=== PATIENT | male | born 1960 | race Two or more races ===

== ENCOUNTER 2019-10-07 16:50 | Emergency (ER) | payer OTHER ==
[2019-10-07 17:22] VITALS: BP 149/96
--- NOTE | 2019-10-07 17:54 | ER Document Report ---
ED Medical Screen (RME) - General Chief Complaint: Thumb Injury Stated Complaint: RIGHT THUMB INJURY Time Seen by Provider: 10/07/19 17:45 Mode of Arrival: Ambulatory Information source: Patient Notes: HPI; 59-year-old male past medical history significant for hypertension presents the emergency room complaining of nasal bone pain, right thumb pain. Patient states he tripped and fell while playing tennis 2 days ago hitting his face on the court as well as his right thumb. He did sustain a laceration to the medial aspect of the right thumb. He denies any loss of consciousness. States his tetanus is up-to-date. Taking ibuprofen with some relief. Denies nausea, vomiting. PE: Alert and oriented x3. Tenderness to the bridge of the nose. Abrasions noted to the upper lip and chin. Right thumb with a healing laceration to the right lateral aspect of the thumbnail. Obvious deformity of the thumb. Positive right radial pulse. Capillary refill less than 3 seconds. I have greeted and performed a rapid initial assessment of this patient. A comprehensive ED assessment and evaluation of the patient, analysis of test results and completion of the medical decision making process will be conducted by additional ED providers. I have specifically instructed the patient or family members with the patient to immediately return to any nursing staff should anything change in the patient's condition or with their chief complaint. - Related Data Allergies/Adverse Reactions: No Known Allergies Allergy (Unverified 10/07/19 17:49) Home Medications: BP meds but pt cannot recall Physical Exam - Vital signs Vitals: Temp Pulse Resp BP Pulse Ox 98.4 F 76 18 149/96 H 98 10/07/19 17:20 10/07/19 17:20 10/07/19 17:20 10/07/19 17:20 10/07/19 17:20 Course - Vital Signs Vital signs: Temp Pulse Resp BP Pulse Ox 98.4 F 76 18 149/96 H 98 10/07/19 17:45 10/07/19 17:20 10/07/19 17:20 10/07/19 17:20 10/07/19 17:20
--- NOTE | 2019-10-07 18:32 | RADIOLOGY REPORT (SQ) ---
EXAM DESCRIPTION: FINGER RIGHT IMAGES COMPLETED DATE/TIME: 10/07/2019 6:17 pm REASON FOR STUDY: right thumb injury COMPARISON: None. NUMBER OF VIEWS: Three views. TECHNIQUE: AP, lateral, and oblique images acquired of the right thumb. LIMITATIONS: None. FINDINGS: MINERALIZATION: Normal. BONES: Chip fracture at the base of the 1st distal phalanx. SOFT TISSUES: No soft tissue swelling. No foreign body. OTHER: No other significant finding. IMPRESSION: Chip fracture at the base of the 1st distal phalanx. COMMENT: SITE OF TRAUMA/COMPLAINT MARKED/STAMP COMPLETED: Yes TECHNICAL DOCUMENTATION: JOB ID: [id number] 2010 [employer]- All Rights Reserved Reading location - IP/workstation name: [email or web address]
--- NOTE | 2019-10-07 18:33 | RADIOLOGY REPORT (SQ) ---
EXAM DESCRIPTION: NOSE/NASAL BONES IMAGES COMPLETED DATE/TIME: 10/07/2019 6:17 pm REASON FOR STUDY: fall/trauma COMPARISON: None. NUMBER OF VIEWS: Three view. TECHNIQUE: Images of the facial bones acquired. LIMITATIONS: None. FINDINGS: ORBITS: No fracture. No foreign body. SINUSES: No mucosal thickening. No air fluid levels. FACIAL BONES: No facial fractures are seen. OTHER: No other significant finding. IMPRESSION: NO FOREIGN BODY OR FRACTURE OF THE FACIAL BONES. TECHNICAL DOCUMENTATION: JOB ID: [id number] [employer]- All Rights Reserved Reading location - IP/workstation name: [email or web address]
== END 2019-10-07 22:19 | disposition left against medical advice (07) ==
LOC: ER 16:50
DX: S69.91XA Unspecified injury of right wrist, hand and finger(s), initial encounter (principal); S00.511A Abrasion of lip, initial encounter; S00.81XA Abrasion of other part of head, initial encounter; I10 Essential (primary) hypertension; J34.89 Other specified disorders of nose and nasal sinuses; W01.0XXA Fall on same level from slipping, tripping and stumbling without subsequent striking against object, initial encounter; Y93.73 Activity, racquet and hand sports; Y92.312 Tennis court as the place of occurrence of the external cause
CPT/HCPCS: 70160; 99281